=== PATIENT | female | born 1985 | race Caucasian/White ===

== ENCOUNTER 2016-09-06 09:53 | Emergency (ER) | payer MEDICAID, OTHER ==
[~2016-09-06] VITALS: Ht 152.4 cm; Wt 80.7 kg
[~2016-09-06 09:53] MED LIST: FOLIC ACID; IRON; LEVAQUIN750 MG PO; PREDNISONE20 MG PO; PRENATAL; PROAIR HFA0.09 MG/Ac IH; ZITHROMAX250 MG PO; ZOFRAN
[2016-09-06 10:07] VITALS: BP 130/86
--- NOTE | 2016-09-06 10:25 | NUR ---
31/F presents to ED for evaluation of left 3rd digit x2 days. Patient has swelling to middle finger, no discoloration, no redness. Denies any injury or trauma. Pt states "I just woke up and it was swollen." Cap refill less than 3 secs. Pt is AOX4, ambulatory with steady gait. VSS. Pt is calm and relaxed. No visible signs of distress. Boyfriend at bedside.
--- NOTE | 2016-09-06 12:18 | NUR ---
ERMD AT BEDSIDE EVAL. PATIENT
[2016-09-06 12:40] VITALS: BP 120/88
--- NOTE | 2016-09-06 12:40 | NUR ---
Chart checked and completed. The patient's care was reviewed and supervised by Ashlyn Perez RN.
--- NOTE | 2016-09-06 12:40 | NUR ---
Patient discharged with v/s stable. Written and verbal after care instructions given and explained. Patient alert, oriented and verbalized understanding of instructions. Ambulatory with steady gait. All questions addressed prior to discharge. ID band removed. Patient advised to follow up with PMD. Rx of MOTRIN,NORCO,BACTRIM DS given. Patient educated on indication of medication including possible reaction and side effects. Opportunity to ask questions provided and answered.
== END 2016-09-06 12:40 | disposition home or self-care (01) ==
LOC: MED 09:53
DX: L03.012 Cellulitis of left finger (principal); N39.0 Urinary tract infection, site not specified; J45.909 Unspecified asthma, uncomplicated; E11.9 Type 2 diabetes mellitus without complications; I10 Essential (primary) hypertension; M32.9 Systemic lupus erythematosus, unspecified; Z85.3 Personal history of malignant neoplasm of breast; Z88.1 Allergy status to other antibiotic agents; Z88.5 Allergy status to narcotic agent; Z91.040 Latex allergy status; Z91.018 Allergy to other foods

== ENCOUNTER 2016-09-28 20:43 | Emergency (ER) | payer OTHER ==
[~2016-09-28] VITALS: Ht 154.9 cm; Wt 77.1 kg
[2016-09-28 20:46] VITALS: BP 139/79
[2016-09-28] MEDS ORDERED: GLUCOPHAGE500 MG PO (20:51)
--- NOTE | 2016-09-28 21:25 | NUR ---
PT TAKEN TO BED 8
--- NOTE | 2016-09-28 21:27 | NUR ---
31Y F BIB SELF C/O VAGINAL BLEEDING X 2 DAYS . PT DENIES N/V/D; SKIN IS PINK/WARM/DRY; AAOX4 WITH EVEN AND STEADY GAIT; LUNGS CLEAR BL; HR EVEN AND REGULAR; PT DENIES ANY FEVER, CP, SOB, OR COUGH AT THIS TIME; PATIENT STATES PAIN OF 9/10 AT THIS TIME; VSS; PATIENT POSITIONED FOR COMFORT; HOB ELEVATED; BEDRAILS UP X2; BED DOWN. ER MD MADE AWARE OF PT STATUS. HX: LUPUS, BREAST CANCER, DM ALLERGIC: AMOX, DEMEROL, CODEINE, IDODINE, LATEX
--- NOTE | 2016-09-28 21:45 | NUR ---
Dr. Giraldo evaluating patient at bedside.
[2016-09-28] MEDS ORDERED: KETOROLAC 60 MG/2 ML VIAL IM ONE (22:15)
--- NOTE | 2016-09-28 22:21 | NUR ---
PT TAKEN TO ULTRASOUND
[2016-09-28 23:55] VITALS: BP 132/81
--- NOTE | 2016-09-28 23:55 | NUR ---
Patient discharged with v/s stable. Written and verbal after care instructions given and explained. Patient alert, oriented and verbalized understanding of instructions. Ambulatory with steady gait. All questions addressed prior to discharge. ID band removed. Patient advised to follow up with PMD. Rx of ULTRAM 50MG given. Patient educated on indication of medication including possible reaction and side effects. Opportunity to ask questions provided and answered.
== END 2016-09-28 23:55 | disposition home or self-care (01) ==
LOC: MED 20:43
DX: N93.9 Abnormal uterine and vaginal bleeding, unspecified (principal); J45.909 Unspecified asthma, uncomplicated; E11.9 Type 2 diabetes mellitus without complications; I10 Essential (primary) hypertension; Z85.3 Personal history of malignant neoplasm of breast; Z88.1 Allergy status to other antibiotic agents; Z88.5 Allergy status to narcotic agent; Z91.018 Allergy to other foods; Z91.040 Latex allergy status
CPT/HCPCS: 36415; 76856; 81002; 81025; 85025; 96372; 99285; J1885

== ENCOUNTER 2016-12-22 10:19 | Emergency (ER) | payer OTHER ==
[~2016-12-22] VITALS: Ht 152.4 cm; Wt 79.4 kg
[~2016-12-22 10:19] MED LIST changes: +GLUCOPHAGE500 MG PO
[2016-12-22 10:24] VITALS: BP 143/94
[2016-12-22] MEDS ORDERED: IBUPROFEN800 MG PO (10:28)
[2016-12-22] MEDS ORDERED: ASPIRIN ADULT L81 M1 PO (10:28)
--- NOTE | 2016-12-22 10:30 | NUR ---
PT TO BED 4.
--- NOTE | 2016-12-22 10:32 | NUR ---
PT AMBULATE TO RESTROOM.
--- NOTE | 2016-12-22 10:40 | NUR ---
PATIENT PRESENTS TO ED WITH SEVERE SUPRAPUBIC PAIN RADIATING TO LOWER BACK . PT STATES ALSO N/V. SKIN IS PINK/WARM/DRY--PRONOUNCED BUTTERFLY MAKING TO FACE OF LUPUS; AAOX4 WITH EVEN AND STEADY GAIT; LUNGS CLEAR BL; HR EVEN AND REGULAR; PT DENIES ANY FEVER, CP, SOB, OR COUGH AT THIS TIME; PATIENT STATES PAIN OF 10/10 AT THIS TIME; VSS; PATIENT POSITIONED FOR COMFORT; HOB ELEVATED; BEDRAILS UP X2; BED DOWN. ER MD MADE AWARE OF PT STATUS.
[2016-12-22] MEDS ORDERED: KETOROLAC 30 MG/ML VIAL IM ONE (10:50)
--- NOTE | 2016-12-22 11:05 | NUR ---
ULTRASOUND AT BEDSIDE
--- NOTE | 2016-12-22 11:48 | NUR ---
PELVIC TRAY AT BEDSIDE
--- NOTE | 2016-12-22 11:53 | NUR ---
AMBULATED TO AND FROM RESTROOM STEADY GAIT, DENIES PAIN AT THIS TIME.
--- NOTE | 2016-12-22 12:19 | NUR ---
Patient discharged with v/s stable. Written and verbal after care instructions given and explained. Patient alert, oriented and verbalized understanding of instructions. Ambulatory with steady gait. All questions addressed prior to discharge. ID band removed. Patient advised to follow up with PMD. Rx of NAPROXEN/ ZOFRAN given. Patient educated on indication of medication including possible reaction and side effects. Opportunity to ask questions provided and answered.
[2016-12-22 12:20] VITALS: BP 121/82
== END 2016-12-22 12:19 | disposition home or self-care (01) ==
LOC: MED 10:19
DX: N93.9 Abnormal uterine and vaginal bleeding, unspecified (principal); J45.909 Unspecified asthma, uncomplicated; E11.9 Type 2 diabetes mellitus without complications; I10 Essential (primary) hypertension; Z85.3 Personal history of malignant neoplasm of breast; Z90.89 Acquired absence of other organs; Z88.5 Allergy status to narcotic agent; Z88.0 Allergy status to penicillin; Z91.018 Allergy to other foods; Z91.040 Latex allergy status; Z88.8 Allergy status to other drugs, medicaments and biological substances
CPT/HCPCS: 36415; 76856; 80053; 81001; 81025; 82948; 83690; 84702; 85025; 85610; 85730; 87086; 96372; 99285; J1885; Q0092

== ENCOUNTER 2017-04-17 01:50 | Emergency (ER) | payer OTHER ==
[~2017-04-17] VITALS: Ht 172.7 cm; Wt 84.9 kg
[~2017-04-17 01:50] MED LIST changes: +ASPI81CT27 PO; -FOLIC ACID; -GLUCOPHAGE500 MG PO; +IBUP800T99 PO; -IRON; -LEVAQUIN750 MG PO; +METF500T PO; -PREDNISONE20 MG PO; -PRENATAL; -PROAIR HFA0.09 MG/Ac IH; -ZITHROMAX250 MG PO; -ZOFRAN
[2017-04-17 02:10] VITALS: BP 148/100
[2017-04-17] MEDS: KETOROLAC 30 MG/ML VIAL IM ONE (03:50)
[2017-04-17 04:10] VITALS: BP 112/69
== END 2017-04-17 04:10 | disposition home or self-care (01) ==
LOC: MED 01:50
DX: R51 Headache (principal); J45.909 Unspecified asthma, uncomplicated; M79.645 Pain in left finger(s); E11.9 Type 2 diabetes mellitus without complications; I10 Essential (primary) hypertension; Y08.89XA Assault by other specified means, initial encounter; Z88.1 Allergy status to other antibiotic agents; Z88.5 Allergy status to narcotic agent; Z91.041 Radiographic dye allergy status; Z91.040 Latex allergy status; Z85.3 Personal history of malignant neoplasm of breast
CPT/HCPCS: 70486; 81002; 81025; 96372; 99284; J1885

== ENCOUNTER 2018-04-09 23:01 | Emergency (ER) | payer SELFPAY ==
[~2018-04-09] VITALS: Ht 152.4 cm; Wt 71.2 kg
[~2018-04-09 23:01] MED LIST changes: -ASPI81CT27 PO; +ASPI81CT95 PO; +IBUP-1801 PO; -IBUP800T99 PO
[2018-04-09 23:04] VITALS: BP 124/81
--- NOTE | 2018-04-09 23:10 | NUR ---
PT AMBULATED TO LOBBY WITH VSS
--- NOTE | 2018-04-10 01:27 | NUR ---
PT TO ER BED 7
--- NOTE | 2018-04-10 01:30 | NUR ---
PT PRESENTED ER WITH C/O PAIN TO THE VAGINA X 4 DAYS. PT HAS SORES AND DISCHARGE FROM THE VAGINA. PT STATES THAT DISCHARGE IS FOUL. PT IS A/O X 4. PT STATED SHE HAD FEVER YESTERDAY. PT DENIES N/V.PT WANTS TO MAKE SUREIT IS NOT AN STI. SKIN IS PINK/WARM/DRY; AAOX4 WITH EVEN AND STEADY GAIT; PATIENT STATES PAIN OF 8/10 AT THIS TIME; VSS; PATIENT POSITIONED FOR COMFORT; HOB ELEVATED; BEDRAILS UP X2; BED DOWN. ER MD MADE AWARE OF PT STATUS.
[2018-04-10] MEDS ORDERED: PHENAZOPYRIDINE 100 MG TAB PO ONE (01:45)
[2018-04-10 02:24] LABS: APPEARANCE,URINE CLOUDY (CLEAR); BILIRUBIN,URINE 1+ (NEGATIVE); BLOOD, URINE 3+ (NEGATIVE); COLOR,URINE YELLOW (YELLOW); LEUKOCYTE ESTERASE ,URINE NEGATIVE (NEGATIVE); NITRITE, URINE NEGATIVE (NEGATIVE); PH,URINE 5.5 (5.0-9.0); UGLUCOSE NEGATIVE (NEGATIVE)
[2018-04-10 02:39] LABS: CALCIUM OXALATE CRYSTALS,UR 0-10 /HPF (None Seen); RBC,URINE TOO NUMEROUS TO COUN /HPF (0-5)
[2018-04-10] MEDS ORDERED: FLUCONAZOLE 100 MG TAB PO ONE (02:40)
[2018-04-10] MEDS ORDERED: cefTRIAXone 250 MG in LIDOCAINE MPF 1% - 5 mL VIAL 0.9 ML IM ONE (02:40)
[2018-04-10] MEDS ORDERED: FLUCONAZOLE 100 MG TAB ONE ×2 (03:03→03:11)
--- NOTE | 2018-04-10 03:15 | NUR ---
pt sitting up in bed, vitals stable.
[2018-04-10 04:20] VITALS: BP 122/76
--- NOTE | 2018-04-10 04:20 | NUR ---
Patient discharged with v/s stable. Written and verbal after care instructions given and explained. Patient alert, oriented and verbalized understanding of instructions. Ambulatory with steady gait. All questions addressed prior to discharge. ID band removed. Patient advised to follow up with PMD. Rx of diflucan, doxycycline, flagyl, terazol was given. Patient educated on indication of medication including possible reaction and side effects. Opportunity to ask questions provided and answered.
[2018-04-10] MEDS ORDERED: DOXYCYCLINE 100 MG CAP PO SCH (09:00)
[2018-04-12 06:24] LABS: CHLAMYDIA TRACHOMATIS AMP DNA Negative (Negative)
== END 2018-04-10 04:20 | disposition home or self-care (01) ==
LOC: MED 23:01
DX: R30.0 Dysuria (principal)
CPT/HCPCS: 36415; 81001; 87086; 87491; 96372; 99284; J0696; J2001

== ENCOUNTER 2022-09-29 13:39 | Emergency (ER) | payer SELFPAY ==
[~2022-09-29] VITALS: Ht 152.4 cm; Wt 84.4 kg
[~2022-09-29 13:39] MED LIST changes: +METF-346 PO; -METF500T PO
[2022-09-29 13:41] VITALS: BP 153/105
--- NOTE | 2022-09-29 13:54 | NUR ---
pt ambulated to [facility]
--- NOTE | 2022-09-29 13:56 | NUR ---
BIB FAMILY C/O NECK PAIN , RIGHT SHOULDER PAIN RADIATING TO RIGHT ARM & RIGHT HAND SWELLING & NUMBNESS X 3 DAYS. BLOOD SUGAR 191 AT THIS TIME. PMH: DM, LUPUS, ANEMIA
--- NOTE | 2022-09-29 14:22 | NUR ---
PT AMB TO BED 12.
[2022-09-29] MEDS ORDERED: WATER STERILE 10 ML MC ONE (15:02)
[2022-09-29] MEDS ORDERED: methylPREDNISolone SS 125 MG/2 ML VIAL ONE (15:02)
[2022-09-29] MEDS: methylPREDNISolone SS 125 MG in WATER STERILE 2 ML IM ONE (15:03)
[2022-09-29] MEDS: GABAPENTIN 300 MG CAP PO ONE (15:04)
[2022-09-29] MEDS: methocarbamoL 500 MG TAB PO STA (15:04)
[2022-09-29] MEDS: KETOROLAC 15 MG/ML VIAL IM ONE (15:04)
--- NOTE | 2022-09-29 15:10 | NUR ---
xr at bedside.
[2022-09-29 15:37] LABS: BASOPHILS # (AUTO) 0.1 K/uL (0.00-0.22); BASOPHILS % (AUTO) 0.9 % (0.0-2.0); EOSINOPHILS # (AUTO) 0.1 K/uL (0-0.4); EOSINOPHILS % (AUTO) 1.1 % (0.0-4.0); HEMATOCRIT 28.6 % (36-48); HEMOGLOBIN 8.5 g/dL (12.0-16.0); LYMPHOCYTES # (AUTO) 1.5 K/uL (2.5-16.5); LYMPHOCYTES % (AUTO) 18.8 % (20.5-51.1); MEAN CORPUSCULAR HEMOGLOBIN 17 pg (27-31); MEAN CORPUSCULAR HGB CONC 30 g/dL (33-37); MEAN CORPUSCULAR VOLUME 58.3 fL (80-94); MONOCYTES # (AUTO) 0.4 K/uL (0.8-1.0); MONOCYTES % (AUTO) 5.6 % (1.7-9.3); NEUTROPHILS # (AUTO) 5.7 K/uL (1.8-7.7); NEUTROPHILS % (AUTO) 73.6 % (42.2-75.2); PLATELET COUNT (AUTO) 546 K/uL (140-450); RED BLOOD CELL COUNT(AUTO) 4.91 MIL/uL (4.20-5.40); RED CELL DISTRIBUTION WIDTH 16.9 % (11.6-13.7); WHITE BLOOD COUNT (AUTO) 7.7 K/uL (4.8-10.8)
[2022-09-29 15:59] LABS: ALBUMIN 3.6 g/dL (3.4-5.0); ANION GAP 11.7 (8-16); CARBON DIOXIDE 28.6 mmol/L (21-32); CREATININE 0.7 mg/dL (0.6-1.3); POTASSIUM 4.3 mmol/L (3.5-5.1); TOTAL BILIRUBIN 0.2 mg/dL (0.0-1.0)
[2022-09-29] MEDS ORDERED: PRED20TA5 PO (16:20)
[2022-09-29] MEDS ORDERED: METH-1681 PO (16:20)
[2022-09-29] MEDS ORDERED: GABA300C PO (16:20)
[2022-09-29] MEDS ORDERED: FERR325E14 PO (16:20)
[2022-09-29 16:37] VITALS: BP 137/86
--- NOTE | 2022-09-29 16:37 | NUR ---
Patient discharged with v/s stable. Written and verbal after care instructions FOR ANEMIA AND CERVICAL RAD given and explained. Patient alert, oriented and verbalized understanding of instructions. Ambulatory with steady gait. All questions addressed prior to discharge. ID band removed. Patient advised to follow up with PMD. Rx of FERROUS SULFATE given. P Opportunity to ask questions provided and answered.
--- NOTE | 2022-09-29 16:38 | NUR ---
The patient's care was reviewed and supervised by Zamzam Adams, RN, RN.
== END 2022-09-29 16:37 | disposition home or self-care (01) ==
LOC: MED 13:39
DX: S16.1XXA Strain of muscle, fascia and tendon at neck level, initial encounter (principal); M25.511 Pain in right shoulder; D64.9 Anemia, unspecified; I10 Essential (primary) hypertension; E11.9 Type 2 diabetes mellitus without complications; J45.909 Unspecified asthma, uncomplicated; Z86.73 Personal history of transient ischemic attack (TIA), and cerebral infarction without residual deficits; Z85.3 Personal history of malignant neoplasm of breast; Z88.1 Allergy status to other antibiotic agents; Z79.1 Long term (current) use of non-steroidal anti-inflammatories (NSAID); Z88.8 Allergy status to other drugs, medicaments and biological substances; Z91.040 Latex allergy status; Z79.899 Other long term (current) drug therapy; X58.XXXA Exposure to other specified factors, initial encounter; Y93.89 Activity, other specified; Y92.89 Other specified places as the place of occurrence of the external cause; Y99.8 Other external cause status
CPT/HCPCS: 36415; 71045; 73030; 80053; 81025; 82948; 85025; 96372; 99284; J1885; J2930; Q0092